=== PATIENT | female | born 1970 | race Hispanic/Latino ===

== ENCOUNTER 2016-07-15 07:54 | Observation (INO) | payer BC ==
[~2016-07-15] VITALS: Ht 167.6 cm; Wt 90.0 kg
[~2016-07-15 07:54] MED LIST: ALBUTEROL SUL0.083 % IN; ATIVAN0.5 MG PO; CEPHALEXIN500 MG PO; CIPROFLOXACN500 MG PO; HYDROCHLOROT12.5 MG PO; LORTAB5 PO; MEDDOSEPAK PO; METFORMIN500 MG PO; METHOCARBAM500 MG PO; METHOCARBAMOL500 MG PO; NAPROXEN250 MG PO; NAPROXEN500 MG PO; NO HOME MEDS; PRAVASTATIN20 MG PO; PROVENTIL HFA INH; RYBIX ODT50 MG PO; TRAMADOL HCL50 MG PO; ULTRAM50 M1 PO; ULTRAM50 MG OR; VENTOLIN HFA IN; ZITHROMAX250 MG PO; ZPAK PO; [UNRECOGNIZED DRUG - OTHER] OR
[2016-07-15] MEDS ORDERED: METOPROLOL SUCC25 MG PO (08:14)
[2016-07-15] MEDS ORDERED: NITROSTAT0.4 MG SL (08:15)
[2016-07-15] MEDS ORDERED: ASPIRIN ADULT L81 MG PO (08:15)
[2016-07-15] MEDS ORDERED: BUT/APAP/CAF PO (08:16)
[2016-07-15] MEDS ORDERED: PHENERGAN25 MG/TAB PO (08:17)
[2016-07-15] MEDS ORDERED: LIPITOR40 M1 PO (08:17)
[2016-07-15] MEDS ORDERED: PROTONIX40 M2 PO (08:18)
[2016-07-15] MEDS ORDERED: TESSALON PERLE100 MG (08:18)
[2016-07-15 08:23] LABS: HEMATOCRIT 40.8 % (37.0-47.0); HEMOGLOBIN 13.7 g/dl (12.0-16.0); IMMATURE GRANULOCYTES 0.3 % (0.0-1.0); MEAN CELL VOLUME 89.9 fL CALC (80.0-100.0); MEAN CORPUSCULAR HGB 30.2 pG CALC (26.0-32.0); MEAN CORPUSCULAR HGB CONC 33.6 g/L CALC (32.0-36.0); NEUT# 5.77 thou/uL (2.00-7.15); RED BLOOD COUNT 4.54 mill/uL (4.20-5.60); RED CELL DISTRI WIDTH 13.2 % (11.5-15.5)
[2016-07-15 09:03] LABS: ALBUMIN 4.4 g/dL (3.2-5.0); ALKALINE PHOSPHATASE 68 u/l (38-126); ANION GAP 16 (6-22 (CALC)); BILIRUBIN, TOTAL 0.3 mg/dL (0.0-1.4); BUN 11 mg/dL (7-17); BUN/CREATININE RATIO 14 (12-20 (CALC)); CALCIUM 9.4 mg/dL (8.4-10.2); CARBON DIOXIDE 21 mmol/l (22-30); CHLORIDE 106 mmol/l (95-108); CREATININE 0.8 mg/dL (0.5-1.0); GFR > 60 ML/MIN (>=60 (CALC)); GFR FOR AFR.AMER. > 60 ML/MIN (>=60 (CALC)); GLUCOSE 123 mg/dL (65-105); POTASSIUM 3.6 mmol/l (3.5-5.1); SGOT/AST 25 u/l (14-36); SGPT/ALT 24 u/l (9-52); SODIUM 140 mmol/l (137-146); TOTAL PROTEIN 8.5 g/dL (6.3-8.2)
[2016-07-15 09:15] LABS: MYOGLOBIN 28 ng/mL (0 - 62)
[2016-07-15 11:57] VITALS: BP 108/74
[2016-07-15 16:21] VITALS: BP 107/58
[2016-07-15 19:30] VITALS: BP 106/72
[2016-07-15] MEDS ORDERED: TOPAMAX50 MG PO (22:17)
[2016-07-15 23:52] VITALS: BP 107/60
[2016-07-16 04:51] VITALS: BP 95/45
[2016-07-16 08:48] VITALS: BP 101/61
[2016-07-16 08:51] VITALS: BP 101/61
== END 2016-07-16 13:20 | disposition home or self-care (01) | DRG 303 ==
LOC: ENPENDDIS → ED 07:54 → ED-I 09:55 → ED 10:02 → MS2 10:03
PROVIDERS: Emergency Medicine; ADMIT Internal Medicine; ATTEND Internal Medicine
DX: I25.118 Atherosclerotic heart disease of native coronary artery with other forms of angina pectoris (principal); I10 Essential (primary) hypertension; J45.909 Unspecified asthma, uncomplicated; F41.9 Anxiety disorder, unspecified; F32.9 Major depressive disorder, single episode, unspecified; F17.200 Nicotine dependence, unspecified, uncomplicated; G43.909 Migraine, unspecified, not intractable, without status migrainosus
CPT/HCPCS: G0378

== ENCOUNTER 2016-11-03 14:02 | Emergency (ER) | payer BC ==
[~2016-11-03] VITALS: Ht 167.6 cm; Wt 90.0 kg
[~2016-11-03 14:02] MED LIST changes: +ASPIRIN ADULT L81 MG PO; +BUT/APAP/CAF PO; +LIPITOR40 M1 PO; +METOPROLOL SUCC25 MG PO; +NITROSTAT0.4 MG SL; +PHENERGAN25 MG/TAB PO; +PROTONIX40 M2 PO; +TESSALON PERLE100 MG; +TOPAMAX50 MG PO
[2016-11-03] MEDS ORDERED: BACTRIM DS1 TAB PO (14:29)
[2016-11-03] MEDS ORDERED: LORTAB 5-325 MG1 TAB PO (15:18)
[2016-11-03 15:27] VITALS: BP 135/80
--- NOTE | 2016-11-07 11:14 | NUR ---
Sent a certified letter to pt's address to notify her that a new prescription had been called in to her pharmacy on 11/06/2016.
== END 2016-11-03 15:31 | disposition home or self-care (01) | DRG 603 ==
LOC: ED 14:02
PROC: 0H9BXZZ Drainage of Right Upper Arm Skin, External Approach (ICD-10-PCS; principal; 2016-11-03)
DX: L02.411 Cutaneous abscess of right axilla (principal); B95.7 Other staphylococcus as the cause of diseases classified elsewhere

== ENCOUNTER 2017-02-03 22:07 | Emergency (ER) | payer BC ==
[~2017-02-03] VITALS: Ht 167.6 cm; Wt 80.0 kg
[~2017-02-03 22:07] MED LIST changes: +BACTRIM DS1 TAB PO; +LORTAB 5-325 MG1 TAB PO
[2017-02-03] MEDS ORDERED: METO25TAB PO (22:20)
[2017-02-03] MEDS ORDERED: TOPIRAMATE100 MG PO (22:21)
[2017-02-03] MEDS ORDERED: CRESTOR40 MG PO (22:23)
[2017-02-03 22:40] LABS: HEMATOCRIT 35.2 % (37.0-47.0); HEMOGLOBIN 11.8 g/dl (12.0-16.0); IMMATURE GRANULOCYTES 0.2 % (0.0-1.0); MEAN CELL VOLUME 87.1 fL CALC (80.0-100.0); MEAN CORPUSCULAR HGB 29.2 pG CALC (26.0-32.0); MEAN CORPUSCULAR HGB CONC 33.5 g/L CALC (32.0-36.0); NEUT# 4.44 thou/uL (2.00-7.15); RED BLOOD COUNT 4.04 mill/uL (4.20-5.60); RED CELL DISTRI WIDTH 18.7 % (11.5-15.5)
[2017-02-03 22:50] LABS: ALKALINE PHOSPHATASE 41 u/l (38-126); ANION GAP 14 (6-22 (CALC)); BILIRUBIN, TOTAL 0.4 mg/dL (0.0-1.4); BUN 9 mg/dL (7-17); BUN/CREATININE RATIO 11 (12-20 (CALC)); CALCIUM 9.2 mg/dL (8.4-10.2); CARBON DIOXIDE 20 mmol/l (22-30); CHLORIDE 110 mmol/l (95-108); CREATININE 0.8 mg/dL (0.5-1.0); GFR > 60 ML/MIN (>=60 (CALC)); GFR FOR AFR.AMER. > 60 ML/MIN (>=60 (CALC)); GLUCOSE 84 mg/dL (65-105); POTASSIUM 3.9 mmol/l (3.5-5.1); SGOT/AST 19 u/l (14-36); SGPT/ALT 22 u/l (9-52); SODIUM 141 mmol/l (137-146); TOTAL PROTEIN 6.8 g/dL (6.3-8.2)
[2017-02-04 00:04] LABS: BARBITURATES NEGATIVE (NEGATIVE); COCAINE NEGATIVE (NEGATIVE); METHADONE NEGATIVE (NEGATIVE); OXCYCODONE NEGATIVE (NEGATIVE); TETRAHYDROCANNABIONOL NEGATIVE (NEGATIVE); TRICYLIC ANTIDEPRESSANTS NEGATIVE (NEGATIVE)
[2017-02-04 00:27] VITALS: BP 142/66
== END 2017-02-04 00:26 | disposition home or self-care (01) | DRG 103 ==
LOC: ED 22:07
PROVIDERS: Emergency Medicine
DX: R51 Headache (principal); R20.2 Paresthesia of skin; I10 Essential (primary) hypertension; J45.909 Unspecified asthma, uncomplicated; I25.10 Atherosclerotic heart disease of native coronary artery without angina pectoris; F41.9 Anxiety disorder, unspecified

== ENCOUNTER 2017-03-03 12:16 | Emergency (ER) | payer OTHER, BC ==
[~2017-03-03] VITALS: Ht 167.6 cm; Wt 82.0 kg
[~2017-03-03 12:16] MED LIST changes: +CRESTOR40 MG PO; +METO25TAB PO; +TOPIRAMATE100 MG PO
[2017-03-03] MEDS ORDERED: TRAMADOL HYDROC50 MG PO (14:25)
[2017-03-03] MEDS ORDERED: MOTRIN800 MG PO (14:25)
[2017-03-03] MEDS ORDERED: FLEXERIL PO (14:25)
[2017-03-03 14:29] VITALS: BP 100/95
== END 2017-03-03 14:44 | disposition home or self-care (01) | DRG 914 ==
LOC: ED 12:16
DX: S09.90XA Unspecified injury of head, initial encounter (principal); M54.41 Lumbago with sciatica, right side; W01.198A Fall on same level from slipping, tripping and stumbling with subsequent striking against other object, initial encounter; Y93.01 Activity, walking, marching and hiking; Y92.414 Local residential or business street as the place of occurrence of the external cause

== ENCOUNTER 2017-10-08 21:14 | Emergency (ER) | payer BC ==
[~2017-10-08] VITALS: Ht 167.6 cm; Wt 80.0 kg
[~2017-10-08 21:14] MED LIST changes: +FLEXERIL PO; +MOTRIN800 MG PO; +TRAMADOL HYDROC50 MG PO
[2017-10-08 22:39] LABS: HEMATOCRIT 35.4 % (37.0-47.0); HEMOGLOBIN 12.1 g/dl (12.0-16.0); IMMATURE GRANULOCYTES 0.5 % (0.0-1.0); MEAN CORPUSCULAR HGB 32.1 pG CALC (26.0-32.0); MEAN CORPUSCULAR HGB CONC 34.2 g/L CALC (32.0-36.0); NEUT# 3.8 thou/uL (2.00-7.15); RED BLOOD COUNT 3.77 mill/uL (4.20-5.60); RED CELL DISTRI WIDTH 13.2 % (11.5-15.5)
[2017-10-08 22:40] LABS: MEAN CELL VOLUME 93.9 fL CALC (80.0-100.0)
[2017-10-08 22:52] LABS: ALBUMIN 3.5 g/dL (3.2-5.0); ALKALINE PHOSPHATASE 50 u/l (38-126); ANION GAP 11 (6-22 (CALC)); BILIRUBIN, TOTAL 0.3 mg/dL (0.0-1.4); BUN 15 mg/dL (7-17); BUN/CREATININE RATIO 17 (12-20 (CALC)); CARBON DIOXIDE 22 mmol/l (22-30); CHLORIDE 107 mmol/l (95-108); CREATININE 0.9 mg/dL (0.5-1.0); GFR > 60 ML/MIN (>=60 (CALC)); GFR FOR AFR.AMER. > 60 ML/MIN (>=60 (CALC)); POTASSIUM 3.5 mmol/l (3.5-5.1); SGOT/AST 20 u/l (14-36); SGPT/ALT 32 u/l (9-52); SODIUM 136 mmol/l (137-146); TOTAL PROTEIN 6.5 g/dL (6.3-8.2)
[2017-10-08] MEDS ORDERED: PROVERA10 MG PO (23:08)
[2017-10-09 00:21] VITALS: BP 110/68
== END 2017-10-09 00:21 | disposition home or self-care (01) | DRG 761 ==
LOC: ED 21:14
PROVIDERS: Family Medicine
DX: N93.9 Abnormal uterine and vaginal bleeding, unspecified (principal); R53.1 Weakness; R10.2 Pelvic and perineal pain
CPT/HCPCS: J1410

== ENCOUNTER 2018-01-14 15:15 | Emergency (ER) | payer BC ==
[~2018-01-14] VITALS: Ht 167.6 cm; Wt 80.0 kg
[~2018-01-14 15:15] MED LIST changes: +PROVERA10 MG PO
[2018-01-14] MEDS ORDERED: VENTOLIN H108 MCG/AC (15:26)
[2018-01-14 16:34] LABS: INFLUENZA A NONE DETECTED (NONE DETECT); INFLUENZA B NONE DETECTED (NONE DETECT)
[2018-01-14] MEDS ORDERED: ZPAK PO (16:37)
[2018-01-14 16:40] VITALS: BP 133/71
== END 2018-01-14 16:46 | disposition home or self-care (01) | DRG 153 ==
LOC: ED 15:15
PROVIDERS: Family Medicine
DX: J06.9 Acute upper respiratory infection, unspecified (principal); I10 Essential (primary) hypertension; I25.10 Atherosclerotic heart disease of native coronary artery without angina pectoris; M32.9 Systemic lupus erythematosus, unspecified; J45.909 Unspecified asthma, uncomplicated; K21.9 Gastro-esophageal reflux disease without esophagitis; F17.210 Nicotine dependence, cigarettes, uncomplicated

== ENCOUNTER 2018-01-30 07:18 | Emergency (ER) | payer BC ==
[~2018-01-30] VITALS: Ht 167.6 cm; Wt 82.7 kg
[~2018-01-30 07:18] MED LIST changes: +VENTOLIN H108 MCG/AC
[2018-01-30 08:13] LABS: HEMATOCRIT 35.9 % (37.0-47.0); HEMOGLOBIN 11.3 g/dl (12.0-16.0); IMMATURE GRANULOCYTES 0.6 % (0.0-5.0); MEAN CELL VOLUME 87.6 fL CALC (80.0-100.0); MEAN CORPUSCULAR HGB 27.6 pG CALC (26.0-32.0); MEAN CORPUSCULAR HGB CONC 31.5 g/L CALC (32.0-36.0); NEUT# 4.11 thou/uL (2.00-7.15); RED BLOOD COUNT 4.1 mill/uL (4.20-5.60); RED CELL DISTRI WIDTH 17.2 % (11.5-15.5)
[2018-01-30 08:23] LABS: ANION GAP 14 (6-22 (CALC)); BUN 15 mg/dL (7-17); BUN/CREATININE RATIO 19 (12-20 (CALC)); CARBON DIOXIDE 20 mmol/l (22-30); CHLORIDE 112 mmol/l (95-108); CREATININE 0.8 mg/dL (0.5-1.0); GFR > 60 ML/MIN (>=60 (CALC)); GFR FOR AFR.AMER. > 60 ML/MIN (>=60 (CALC)); POTASSIUM 3.9 mmol/l (3.5-5.1); SODIUM 142 mmol/l (137-146)
[2018-01-30 11:26] VITALS: BP 117/56
== END 2018-01-30 11:28 | disposition short-term general hospital (02) | DRG 313 ==
LOC: ED 07:18
PROVIDERS: Family Medicine
DX: R07.9 Chest pain, unspecified (principal); G43.909 Migraine, unspecified, not intractable, without status migrainosus; I10 Essential (primary) hypertension

== ENCOUNTER 2018-05-27 13:09 | Emergency (ER) | payer BC ==
[~2018-05-27] VITALS: Ht 167.6 cm; Wt 80.0 kg
[2018-05-27] MEDS ORDERED: RANITIDINE150 M1 PO (13:33)
[2018-05-27 14:36] LABS: URINE BILIRUBIN - DIPSTICK NEGATIVE (NEGATIVE); URINE BLOOD DIPSTICK NEGATIVE (NEGATIVE); URINE COLOR YELLOW; URINE GLUCOSE - DIPSTICK NEGATIVE (NEGATIVE); URINE KETONE NEGATIVE (NEGATIVE); URINE LEUK ESTERASE NEGATIVE (NEGATIVE); URINE NITRITE - DIPSTICK NEGATIVE (Negative); URINE PROTEIN - DIPSTICK NEGATIVE (NEG-TRACE); URINE SPECIFIC GRAVITY 1.025; URINE UROBILINOGEN - DIPSTICK 0.2 E.U./dL (0.2)
[2018-05-27] MEDS ORDERED: VOLTAREN - GENE75 MG PO (15:36)
[2018-05-27] MEDS ORDERED: TRAMADOL HCL50 MG PO (15:36)
[2018-05-27 16:02] VITALS: BP 106/77
== END 2018-05-27 16:01 | disposition home or self-care (01) | DRG 563 ==
LOC: ED 13:09
PROVIDERS: Family Medicine
DX: S39.012A Strain of muscle, fascia and tendon of lower back, initial encounter (principal); I10 Essential (primary) hypertension; I25.10 Atherosclerotic heart disease of native coronary artery without angina pectoris; K21.9 Gastro-esophageal reflux disease without esophagitis; J45.909 Unspecified asthma, uncomplicated; F17.200 Nicotine dependence, unspecified, uncomplicated; X58.XXXA Exposure to other specified factors, initial encounter

== ENCOUNTER 2018-06-30 06:24 | Emergency (ER) | payer BC ==
[~2018-06-30] VITALS: Ht 167.6 cm; Wt 80.0 kg
[~2018-06-30 06:24] MED LIST changes: +RANITIDINE150 M1 PO; -VENTOLIN H108 MCG/AC; +VENTOLIN H108 MCG/AC IN; +VOLTAREN - GENE75 MG PO
[2018-06-30] MEDS ORDERED: NAPROSYN500 MG PO (07:19)
[2018-06-30 07:52] VITALS: BP 139/75
== END 2018-06-30 07:52 | disposition home or self-care (01) | DRG 563 ==
LOC: ED 06:24
DX: S93.401A Sprain of unspecified ligament of right ankle, initial encounter (principal); S93.601A Unspecified sprain of right foot, initial encounter; I10 Essential (primary) hypertension; I25.10 Atherosclerotic heart disease of native coronary artery without angina pectoris; F17.200 Nicotine dependence, unspecified, uncomplicated; X58.XXXA Exposure to other specified factors, initial encounter; Y92.481 Parking lot as the place of occurrence of the external cause; Y99.9 Unspecified external cause status

== ENCOUNTER 2018-10-29 13:37 | Emergency (ER) | payer BC ==
[~2018-10-29] VITALS: Ht 167.6 cm; Wt 85.0 kg
[~2018-10-29 13:37] MED LIST changes: +NAPROSYN500 MG PO
[2018-10-29] MEDS ORDERED: PROPRANOLOL80 M1 PO (13:48)
[2018-10-29] MEDS ORDERED: PROAIR HFA108 MCG/AC IN (13:49)
[2018-10-29 14:32] LABS: HEMATOCRIT 36.2 % (37.0-47.0); HEMOGLOBIN 11.4 g/dl (12.0-16.0); IMMATURE GRANULOCYTES 0.3 % (0.0-5.0); MEAN CELL VOLUME 87.2 fL CALC (80.0-100.0); MEAN CORPUSCULAR HGB 27.5 pG CALC (26.0-32.0); MEAN CORPUSCULAR HGB CONC 31.5 g/L CALC (32.0-36.0); NEUT# 4.39 thou/uL (2.00-7.15); RED BLOOD COUNT 4.15 mill/uL (4.20-5.60); RED CELL DISTRI WIDTH 13.5 % (11.5-15.5)
[2018-10-29 16:07] LABS: ALBUMIN 4.2 g/dL (3.2-5.0); ALKALINE PHOSPHATASE 46 u/l (38-126); ANION GAP 15 (6-22 (CALC)); BILIRUBIN, TOTAL 0.3 mg/dL (0.0-1.4); BUN 13 mg/dL (7-17); BUN/CREATININE RATIO 15 (12-20 (CALC)); CARBON DIOXIDE 19 mmol/l (22-30); CHLORIDE 110 mmol/l (95-108); CREATININE 0.9 mg/dL (0.5-1.0); GFR > 60 ML/MIN (>=60 (CALC)); GFR FOR AFR.AMER. > 60 ML/MIN (>=60 (CALC)); POTASSIUM 3.7 mmol/l (3.5-5.1); SODIUM 141 mmol/l (137-146); TOTAL PROTEIN 7.3 g/dL (6.3-8.2)
[2018-10-29 16:09] LABS: SGOT/AST 54 u/l (14-36)
[2018-10-29] MEDS ORDERED: TORADOL PO (16:18)
[2018-10-29 16:26] VITALS: BP 112/55
== END 2018-10-29 16:33 | disposition home or self-care (01) | DRG 103 ==
LOC: ED 13:37
PROVIDERS: Emergency Medicine
DX: R51 Headache (principal); I10 Essential (primary) hypertension; I25.10 Atherosclerotic heart disease of native coronary artery without angina pectoris; F17.200 Nicotine dependence, unspecified, uncomplicated

== ENCOUNTER 2018-12-05 21:15 | Emergency (ER) | payer BC ==
[~2018-12-05] VITALS: Ht 167.6 cm; Wt 90.0 kg
[~2018-12-05 21:15] MED LIST changes: +PROAIR HFA108 MCG/AC IN; +PROPRANOLOL80 M1 PO; +TORADOL PO
[2018-12-05] MEDS ORDERED: CRESTOR40 MG PO (21:34)
[2018-12-05 21:43] LABS: HEMATOCRIT 36.9 % (37.0-47.0); HEMOGLOBIN 11.4 g/dl (12.0-16.0); IMMATURE GRANULOCYTES 0.3 % (0.0-5.0); MEAN CELL VOLUME 83.9 fL CALC (80.0-100.0); MEAN CORPUSCULAR HGB 25.9 pG CALC (26.0-32.0); MEAN CORPUSCULAR HGB CONC 30.9 g/L CALC (32.0-36.0); NEUT# 4.86 thou/uL (2.00-7.15); RED BLOOD COUNT 4.4 mill/uL (4.20-5.60); RED CELL DISTRI WIDTH 14.6 % (11.5-15.5)
[2018-12-05 22:04] LABS: ALBUMIN 4.6 g/dL (3.2-5.0); ALKALINE PHOSPHATASE 63 u/l (38-126); AMYLASE 107 u/l (30-110); ANION GAP 13 (6-22 (CALC)); BILIRUBIN, TOTAL 0.2 mg/dL (0.0-1.4); BUN 15 mg/dL (7-17); BUN/CREATININE RATIO 18 (12-20 (CALC)); CHLORIDE 109 mmol/l (95-108); CREATININE 0.9 mg/dL (0.5-1.0); GFR > 60 ML/MIN (>=60 (CALC)); GFR FOR AFR.AMER. > 60 ML/MIN (>=60 (CALC)); LIPASE 317 u/l (23-300); POTASSIUM 3.8 mmol/l (3.5-5.1); SGOT/AST 28 u/l (14-36); SODIUM 141 mmol/l (137-146)
[2018-12-05 22:06] LABS: ACT PARTIAL THROMBO TIME 25.7 SECONDS (20.0-32.5); CARBON DIOXIDE 23 mmol/l (22-30); D-DIMER 0.22 mg/L (0.19-0.60); INTERNATIONAL NORMALIZED RATIO 0.9 RATIO (0.7-1.3); PROTHROMBIN TIME 9.3 SECONDS (9.0-12.5)
[2018-12-05 22:16] LABS: MYOGLOBIN 157 ng/mL (0 - 62)
[2018-12-06] MEDS ORDERED: TORADOL PO (01:12)
[2018-12-06 01:25] VITALS: BP 94/55
== END 2018-12-06 01:25 | disposition home or self-care (01) | DRG 206 ==
LOC: ED 21:15
PROVIDERS: Family Medicine
DX: M94.0 Chondrocostal junction syndrome [Tietze] (principal); I25.10 Atherosclerotic heart disease of native coronary artery without angina pectoris; I10 Essential (primary) hypertension; F17.200 Nicotine dependence, unspecified, uncomplicated

== ENCOUNTER 2019-01-25 10:12 | Observation (INO) | payer BC ==
[~2019-01-25] VITALS: Ht 167.6 cm; Wt 89.4 kg
[2019-01-25 10:55] LABS: HEMATOCRIT 38.4 % (37.0-47.0); HEMOGLOBIN 11.7 g/dl (12.0-16.0); IMMATURE GRANULOCYTES 0.4 % (0.0-5.0); MEAN CELL VOLUME 82.4 fL CALC (80.0-100.0); MEAN CORPUSCULAR HGB 25.1 pG CALC (26.0-32.0); MEAN CORPUSCULAR HGB CONC 30.5 g/L CALC (32.0-36.0); NEUT# 5.25 thou/uL (2.00-7.15); RED BLOOD COUNT 4.66 mill/uL (4.20-5.60); RED CELL DISTRI WIDTH 18.6 % (11.5-15.5)
[2019-01-25 11:30] LABS: ACT PARTIAL THROMBO TIME 27.3 SECONDS (20.0-32.5); INTERNATIONAL NORMALIZED RATIO 0.9 RATIO (0.7-1.3); PROTHROMBIN TIME 9.4 SECONDS (9.0-12.5)
[2019-01-25 11:36] LABS: ALBUMIN 4.8 g/dL (3.2-5.0); ALKALINE PHOSPHATASE 68 u/l (38-126); AMYLASE 78 u/l (30-110); ANION GAP 14 (6-22 (CALC)); BUN 15 mg/dL (7-17); BUN/CREATININE RATIO 18 (12-20 (CALC)); CARBON DIOXIDE 23 mmol/l (22-30); CHLORIDE 107 mmol/l (95-108); CREATININE 0.8 mg/dL (0.5-1.0); GFR > 60 ML/MIN (>=60 (CALC)); GFR FOR AFR.AMER. > 60 ML/MIN (>=60 (CALC)); LIPASE 144 u/l (23-300); POTASSIUM 3.9 mmol/l (3.5-5.1); SGOT/AST 37 u/l (14-36); SODIUM 140 mmol/l (137-146); TOTAL PROTEIN 8.4 g/dL (6.3-8.2)
[2019-01-25 11:37] LABS: BILIRUBIN, TOTAL 0.3 mg/dL (0.0-1.4)
[2019-01-25 13:14] LABS: URINE BILIRUBIN - DIPSTICK NEGATIVE (NEGATIVE); URINE BLOOD DIPSTICK NEGATIVE (NEGATIVE); URINE COLOR YELLOW; URINE GLUCOSE - DIPSTICK NEGATIVE (NEGATIVE); URINE KETONE NEGATIVE (NEGATIVE); URINE LEUK ESTERASE NEGATIVE (NEGATIVE); URINE NITRITE - DIPSTICK NEGATIVE (Negative); URINE PROTEIN - DIPSTICK NEGATIVE (NEG-TRACE); URINE UROBILINOGEN - DIPSTICK 0.2 E.U./dL (0.2)
[2019-01-25 14:30] VITALS: BP 106/61
[2019-01-25 15:15] VITALS: BP 95/57
[2019-01-25 19:05] VITALS: BP 116/69
[2019-01-25 23:40] VITALS: BP 85/58
[2019-01-26 05:30] VITALS: BP 98/61
[2019-01-26 06:23] LABS: CHOLESTEROL HDL RATIO 3.4 (<4.4 (CALC))
[2019-01-26 07:55] VITALS: BP 120/63
[2019-01-26 08:28] VITALS: BP 120/63
== END 2019-01-26 10:01 | disposition home or self-care (01) | DRG 303 ==
LOC: ED 10:12 → ED-I 11:30 → ED 12:10 → MS2 12:11
PROVIDERS: ADMIT Internal Medicine; ATTEND Internal Medicine
DX: I25.119 Atherosclerotic heart disease of native coronary artery with unspecified angina pectoris (principal); I10 Essential (primary) hypertension; D64.9 Anemia, unspecified; J45.909 Unspecified asthma, uncomplicated; K21.9 Gastro-esophageal reflux disease without esophagitis; F32.9 Major depressive disorder, single episode, unspecified; F41.9 Anxiety disorder, unspecified; G43.909 Migraine, unspecified, not intractable, without status migrainosus; F17.210 Nicotine dependence, cigarettes, uncomplicated
CPT/HCPCS: G0378

== ENCOUNTER 2019-10-05 14:17 | Emergency (ER) | payer BC ==
[~2019-10-05] VITALS: Ht 167.6 cm; Wt 85.0 kg
[2019-10-05] MEDS ORDERED: LORATADINE10 M1 PO (16:02)
[2019-10-05] MEDS ORDERED: BUT/APAP/CA3 PO (16:03)
[2019-10-05] MEDS ORDERED: FIORICET PO (16:06)
[2019-10-05 17:58] VITALS: BP 130/76
== END 2019-10-05 17:58 | disposition home or self-care (01) | DRG 866 ==
LOC: ED 14:17
DX: B34.9 Viral infection, unspecified (principal); G43.909 Migraine, unspecified, not intractable, without status migrainosus; I10 Essential (primary) hypertension; I25.10 Atherosclerotic heart disease of native coronary artery without angina pectoris; F17.200 Nicotine dependence, unspecified, uncomplicated; Z20.828 Contact with and (suspected) exposure to other viral communicable diseases

== ENCOUNTER 2020-02-11 08:03 | Emergency (ER) | payer BC ==
[~2020-02-11] VITALS: Ht 167.6 cm; Wt 65.0 kg
[~2020-02-11 08:03] MED LIST changes: +BUT/APAP/CA3 PO; +FIORICET PO; +LORATADINE10 M1 PO
[2020-02-11] MEDS ORDERED: NAPROXEN DR500 MG PO (08:46)
[2020-02-11 08:54] VITALS: BP 142/76
== END 2020-02-11 09:04 | disposition home or self-care (01) | DRG 563 ==
LOC: ED 08:03
DX: S93.401A Sprain of unspecified ligament of right ankle, initial encounter (principal); M77.31 Calcaneal spur, right foot; I10 Essential (primary) hypertension; I25.10 Atherosclerotic heart disease of native coronary artery without angina pectoris; J45.909 Unspecified asthma, uncomplicated; K21.9 Gastro-esophageal reflux disease without esophagitis; F17.200 Nicotine dependence, unspecified, uncomplicated; X58.XXXA Exposure to other specified factors, initial encounter

== ENCOUNTER 2020-06-20 19:30 | Emergency (ER) | payer BC ==
[~2020-06-20] VITALS: Ht 167.6 cm; Wt 110.0 kg
[~2020-06-20 19:30] MED LIST changes: +NAPROXEN DR500 MG PO
[2020-06-20 21:41] LABS: HEMATOCRIT 44.8 % (37.0-47.0); HEMOGLOBIN 14.6 g/dl (12.0-16.0); IMMATURE GRANULOCYTES 0.5 % (0.0-5.0); MEAN CELL VOLUME 97.2 fL CALC (80.0-100.0); MEAN CORPUSCULAR HGB 31.7 pG CALC (26.0-32.0); MEAN CORPUSCULAR HGB CONC 32.6 g/dL CAL (32.0-36.0); NEUT# 5.3 thou/uL (2.00-7.15); RED BLOOD COUNT 4.61 mill/uL (4.20-5.60); RED CELL DISTRI WIDTH 13.6 % (11.5-15.5)
[2020-06-20 21:42] LABS: URINE BILIRUBIN - DIPSTICK NEGATIVE (NEGATIVE); URINE BLOOD DIPSTICK NEGATIVE (NEGATIVE); URINE COLOR YELLOW; URINE GLUCOSE - DIPSTICK NEGATIVE (NEGATIVE); URINE KETONE NEGATIVE (NEGATIVE); URINE LEUK ESTERASE NEGATIVE (NEGATIVE); URINE NITRITE - DIPSTICK NEGATIVE (Negative); URINE PROTEIN - DIPSTICK NEGATIVE (NEG-TRACE); URINE SPECIFIC GRAVITY 1.025
[2020-06-20 22:08] LABS: ALBUMIN 4.6 g/dL (3.2-5.0); ALKALINE PHOSPHATASE 65 u/l (38-126); ANION GAP 13 (6-22 (CALC)); BUN 14 mg/dL (7-17); BUN/CREATININE RATIO 16 (12-20 (CALC)); CARBON DIOXIDE 25 mmol/l (22-30); CHLORIDE 102 mmol/l (95-108); CREATININE 0.9 mg/dL (0.5-1.0); GFR > 60 ML/MIN (>=60 (CALC)); GFR FOR AFR.AMER. > 60 ML/MIN (>=60 (CALC)); POTASSIUM 3.7 mmol/l (3.5-5.1); SGOT/AST 42 u/l (14-36); SODIUM 135 mmol/l (137-146); TOTAL PROTEIN 8.2 g/dL (6.3-8.2)
[2020-06-20 22:15] LABS: BILIRUBIN, TOTAL 0.6 mg/dL (0.0-1.4)
[2020-06-20 22:53] VITALS: BP 132/90
== END 2020-06-20 23:00 | disposition home or self-care (01) | DRG 948 ==
LOC: ED 19:30
DX: R60.9 Edema, unspecified (principal); I10 Essential (primary) hypertension; I25.10 Atherosclerotic heart disease of native coronary artery without angina pectoris; J45.909 Unspecified asthma, uncomplicated; K21.9 Gastro-esophageal reflux disease without esophagitis; F17.200 Nicotine dependence, unspecified, uncomplicated

== ENCOUNTER 2020-08-12 | Emergency (ER) | payer BC ==
[2020-08-12 07:16] LABS: URINE BILIRUBIN - DIPSTICK NEGATIVE (NEGATIVE); URINE BLOOD DIPSTICK LARGE (NEGATIVE); URINE COLOR YELLOW; URINE GLUCOSE - DIPSTICK NEGATIVE (NEGATIVE); URINE KETONE NEGATIVE (NEGATIVE); URINE LEUK ESTERASE TRACE (NEGATIVE); URINE PH 5.5 (4.5-8.0); URINE PROTEIN - DIPSTICK 100 mg/dL (NEG-TRACE); URINE SPECIFIC GRAVITY >=1.030
[2020-08-12 07:20] LABS: URINE NITRITE - DIPSTICK POSITIVE (Negative)
[2020-08-12 07:21] LABS: URINE BACTERIA FEW hpf; URINE RBC 25-50 RBC/hpf (0-5); URINE SQUAMOUS EPITHELIAL CELL FEW EPI/hpf (0-FEW); URINE WBC 20-50 WBC/hpf (0-5)
[2020-08-12] MEDS ORDERED: NITROFURANTOIN100 M1 PO (07:56)
== END 2020-08-12 08:05 | disposition home or self-care (01) | DRG 690 ==
PROVIDERS: Family Medicine
DX: N39.0 Urinary tract infection, site not specified (principal); B96.20 Unspecified Escherichia coli [E. coli] as the cause of diseases classified elsewhere; E11.9 Type 2 diabetes mellitus without complications; I10 Essential (primary) hypertension; I25.10 Atherosclerotic heart disease of native coronary artery without angina pectoris; J45.909 Unspecified asthma, uncomplicated; K21.9 Gastro-esophageal reflux disease without esophagitis; F17.210 Nicotine dependence, cigarettes, uncomplicated

== ENCOUNTER 2020-09-03 18:50 | Emergency (ER) | payer BC ==
[~2020-09-03] VITALS: Ht 167.6 cm; Wt 88.0 kg
[~2020-09-03 18:50] MED LIST changes: +NITROFURANTOIN100 M1 PO
[2020-09-03 19:13] LABS: HEMATOCRIT 41.1 % (37.0-47.0); HEMOGLOBIN 13.4 g/dl (12.0-16.0); IMMATURE GRANULOCYTES 0.5 % (0.0-5.0); MEAN CELL VOLUME 97.2 fL CALC (80.0-100.0); MEAN CORPUSCULAR HGB 31.7 pG CALC (26.0-32.0); MEAN CORPUSCULAR HGB CONC 32.6 g/dL CAL (32.0-36.0); NEUT# 5.45 thou/uL (2.00-7.15); RED BLOOD COUNT 4.23 mill/uL (4.20-5.60); RED CELL DISTRI WIDTH 13.5 % (11.5-15.5)
[2020-09-03 19:30] LABS: ALKALINE PHOSPHATASE 69 u/l (38-126); ANION GAP 11 (6-22 (CALC)); BILIRUBIN, TOTAL 0.5 mg/dL (0.0-1.4); BUN 9 mg/dL (7-17); BUN/CREATININE RATIO 14 (12-20 (CALC)); CARBON DIOXIDE 25 mmol/l (22-30); CHLORIDE 103 mmol/l (95-108); CREATININE 0.6 mg/dL (0.5-1.0); GFR > 60 ML/MIN (>=60 (CALC)); GFR FOR AFR.AMER. > 60 ML/MIN (>=60 (CALC)); LIPASE 126 u/l (23-300); POTASSIUM 3.5 mmol/l (3.5-5.1); SODIUM 136 mmol/l (137-146); TOTAL PROTEIN 7.6 g/dL (6.3-8.2)
[2020-09-03 19:31] LABS: SGOT/AST 82 u/l (14-36)
[2020-09-03 21:17] VITALS: BP 130/61
== END 2020-09-03 21:18 | disposition short-term general hospital (02) | DRG 313 ==
LOC: ED 18:50
PROVIDERS: Family Medicine
DX: R07.9 Chest pain, unspecified (principal); I10 Essential (primary) hypertension; E11.9 Type 2 diabetes mellitus without complications; I25.10 Atherosclerotic heart disease of native coronary artery without angina pectoris; J45.909 Unspecified asthma, uncomplicated; K21.9 Gastro-esophageal reflux disease without esophagitis; F17.200 Nicotine dependence, unspecified, uncomplicated
CPT/HCPCS: J1644

== ENCOUNTER 2020-10-16 07:30 | Emergency (ER) | payer BC ==
[~2020-10-16] VITALS: Ht 167.6 cm; Wt 81.8 kg
[2020-10-16 08:18] LABS: HEMATOCRIT 45.7 % (37.0-47.0); HEMOGLOBIN 15.1 g/dl (12.0-16.0); IMMATURE GRANULOCYTES 0.2 % (0.0-5.0); MEAN CELL VOLUME 95.4 fL CALC (80.0-100.0); MEAN CORPUSCULAR HGB 31.5 pG CALC (26.0-32.0); NEUT# 6.27 thou/uL (2.00-7.15); RED BLOOD COUNT 4.79 mill/uL (4.20-5.60); RED CELL DISTRI WIDTH 12.9 % (11.5-15.5)
[2020-10-16 08:23] LABS: URINE BILIRUBIN - DIPSTICK NEGATIVE (NEGATIVE); URINE BLOOD DIPSTICK NEGATIVE (NEGATIVE); URINE COLOR YELLOW; URINE GLUCOSE - DIPSTICK NEGATIVE (NEGATIVE); URINE KETONE NEGATIVE (NEGATIVE); URINE LEUK ESTERASE NEGATIVE (NEGATIVE); URINE PROTEIN - DIPSTICK NEGATIVE (NEG-TRACE); URINE SPECIFIC GRAVITY >=1.030
[2020-10-16 08:24] LABS: URINE NITRITE - DIPSTICK NEGATIVE (Negative)
[2020-10-16 08:35] LABS: ALBUMIN 4.5 g/dL (3.2-5.0); ALKALINE PHOSPHATASE 66 u/l (38-126); AMYLASE 60 u/l (30-110); ANION GAP 16 (6-22 (CALC)); BILIRUBIN, TOTAL 0.3 mg/dL (0.0-1.4); BUN 13 mg/dL (7-17); BUN/CREATININE RATIO 17 (12-20 (CALC)); CARBON DIOXIDE 22 mmol/l (22-30); CHLORIDE 105 mmol/l (95-108); CREATININE 0.7 mg/dL (0.5-1.0); GFR > 60 ML/MIN (>=60 (CALC)); GFR FOR AFR.AMER. > 60 ML/MIN (>=60 (CALC)); LIPASE 128 u/l (23-300); SGOT/AST 114 u/l (14-36); SODIUM 139 mmol/l (137-146); TOTAL PROTEIN 8.2 g/dL (6.3-8.2)
[2020-10-16 08:36] LABS: POTASSIUM 4.3 mmol/l (3.5-5.1)
[2020-10-16 08:47] LABS: MYOGLOBIN 34 ng/mL (0 - 62)
[2020-10-16] MEDS ORDERED: ASPIRIN81 MG PO (09:05)
[2020-10-16] MEDS ORDERED: SUCRALFATE1 GM PO (09:06)
[2020-10-16] MEDS ORDERED: XARELTO10 MG PO (09:06)
[2020-10-16] MEDS ORDERED: METFORMIN500 M2 PO (09:07)
[2020-10-16] MEDS ORDERED: FIORICET PO (09:07)
[2020-10-16] MEDS ORDERED: PROTONIX40 M2 PO (09:08)
[2020-10-16] MEDS ORDERED: NITRO-BID2.5 M1 PO (09:08)
[2020-10-16] MEDS ORDERED: PROPRANOLOL HCL40 MG PO (09:09)
[2020-10-16] MEDS ORDERED: CRESTOR40 MG PO (09:09)
[2020-10-16] MEDS ORDERED: ISOSORB MONO30 MG PO (09:09)
[2020-10-16] MEDS ORDERED: ULTRAM50 M1 PO (09:50)
[2020-10-16] MEDS ORDERED: KEFLEX500 MG PO (09:50)
[2020-10-16 09:57] VITALS: BP 123/68
== END 2020-10-16 10:05 | disposition home or self-care (01) | DRG 863 ==
LOC: ED 07:30
PROVIDERS: Emergency Medicine
DX: T81.41XA Infection following a procedure, superficial incisional surgical site, initial encounter (principal); I10 Essential (primary) hypertension; E11.9 Type 2 diabetes mellitus without complications; I25.10 Atherosclerotic heart disease of native coronary artery without angina pectoris; J45.909 Unspecified asthma, uncomplicated; K21.9 Gastro-esophageal reflux disease without esophagitis; F17.210 Nicotine dependence, cigarettes, uncomplicated; I25.2 Old myocardial infarction; Y83.6 Removal of other organ (partial) (total) as the cause of abnormal reaction of the patient, or of later complication, without mention of misadventure at the time of the procedure; Z79.84 Long term (current) use of oral hypoglycemic drugs; Z90.49 Acquired absence of other specified parts of digestive tract
CPT/HCPCS: Q9967

== ENCOUNTER 2021-03-12 18:20 | Emergency (ER) | payer BC ==
[~2021-03-12] VITALS: Ht 167.6 cm; Wt 99.0 kg
[~2021-03-12 18:20] MED LIST changes: +ASPIRIN81 MG PO; +ISOSORB MONO30 MG PO; +KEFLEX500 MG PO; +METFORMIN500 M2 PO; +NITRO-BID2.5 M1 PO; +PROPRANOLOL HCL40 MG PO; +SUCRALFATE1 GM PO; +XARELTO10 MG PO
[2021-03-12 20:25] LABS: HEMATOCRIT 43.8 % (37.0-47.0); HEMOGLOBIN 14.7 g/dl (12.0-16.0); IMMATURE GRANULOCYTES 0.3 % (0.0-5.0); MEAN CELL VOLUME 93.8 fL CALC (80.0-100.0); MEAN CORPUSCULAR HGB 31.5 pG CALC (26.0-32.0); MEAN CORPUSCULAR HGB CONC 33.6 g/dL CAL (32.0-36.0); NEUT# 9.56 thou/uL (2.00-7.15); RED BLOOD COUNT 4.67 mill/uL (4.20-5.60); RED CELL DISTRI WIDTH 14.2 % (11.5-15.5)
[2021-03-12] MEDS ORDERED: AMOX/K CLAV875 M1 PO (20:47)
[2021-03-12 20:58] VITALS: BP 139/66
== END 2021-03-12 20:58 | disposition home or self-care (01) | DRG 153 ==
LOC: ED 18:20
PROVIDERS: Family Medicine
DX: J32.9 Chronic sinusitis, unspecified (principal); E11.9 Type 2 diabetes mellitus without complications; I10 Essential (primary) hypertension; I25.10 Atherosclerotic heart disease of native coronary artery without angina pectoris; J45.909 Unspecified asthma, uncomplicated; K21.9 Gastro-esophageal reflux disease without esophagitis; F17.200 Nicotine dependence, unspecified, uncomplicated; Z79.84 Long term (current) use of oral hypoglycemic drugs; Z20.822 Contact with and (suspected) exposure to COVID-19

== ENCOUNTER 2021-08-08 14:08 | Emergency (ER) | payer BC ==
[~2021-08-08] VITALS: Ht 167.6 cm; Wt 86.0 kg
[2021-08-08] VITALS (7 sets, daily range): BP systolic 90–143; BP diastolic 48–81
[~2021-08-08 14:08] MED LIST changes: +AMOX/K CLAV875 M1 PO
[2021-08-08 14:45] LABS: HEMATOCRIT 44.5 % (37.0-47.0); HEMOGLOBIN 14.9 g/dl (12.0-16.0); IMMATURE GRANULOCYTES 0.1 % (0.0-5.0); MEAN CELL VOLUME 94.7 fL CALC (80.0-100.0); MEAN CORPUSCULAR HGB 31.7 pG CALC (26.0-32.0); MEAN CORPUSCULAR HGB CONC 33.5 g/dL CAL (32.0-36.0); NEUT# 5.06 thou/uL (2.00-7.15); RED BLOOD COUNT 4.7 mill/uL (4.20-5.60); RED CELL DISTRI WIDTH 13.2 % (11.5-15.5)
[2021-08-08 14:59] LABS: PROTHROMBIN TIME 10.1 SECONDS (9.0-12.5)
[2021-08-08 15:02] LABS: ALBUMIN 4.5 g/dL (3.2-5.0); ALKALINE PHOSPHATASE 81 u/l (38-126); ANION GAP 14 (6-22 (CALC)); BUN 12 mg/dL (7-17); BUN/CREATININE RATIO 17 (12-20 (CALC)); CARBON DIOXIDE 20 mmol/l (22-30); CHLORIDE 107 mmol/l (95-108); CREATININE 0.7 mg/dL (0.5-1.0); GFR > 60 ML/MIN (>=60 (CALC)); GFR FOR AFR.AMER. > 60 ML/MIN (>=60 (CALC)); LIPASE 134 u/l (23-300); POTASSIUM 3.6 mmol/l (3.5-5.1); SGOT/AST 100 u/l (14-36); SODIUM 138 mmol/l (137-146); TOTAL PROTEIN 8.3 g/dL (6.3-8.2)
[2021-08-08 15:08] LABS: BILIRUBIN, TOTAL 0.5 mg/dL (0.0-1.4)
[2021-08-08 15:14] LABS: MYOGLOBIN 43 ng/mL (0 - 62)
[2021-08-08] MEDS ORDERED: MEDDOSEPAK PO (18:13)
== END 2021-08-08 18:31 | disposition home or self-care (01) | DRG 313 ==
LOC: ED 14:08
PROVIDERS: Nurse Practitioner
DX: R07.9 Chest pain, unspecified (principal); I10 Essential (primary) hypertension; I25.10 Atherosclerotic heart disease of native coronary artery without angina pectoris; E11.9 Type 2 diabetes mellitus without complications; E78.5 Hyperlipidemia, unspecified; K21.9 Gastro-esophageal reflux disease without esophagitis; J45.909 Unspecified asthma, uncomplicated; F17.200 Nicotine dependence, unspecified, uncomplicated; Z79.84 Long term (current) use of oral hypoglycemic drugs

== ENCOUNTER 2021-10-29 13:05 | Emergency (ER) | payer OTHER ==
[~2021-10-29] VITALS: Ht 167.6 cm; Wt 89.0 kg
[2021-10-29] VITALS (7 sets, daily range): BP systolic 110–124; BP diastolic 64–73
[2021-10-29 16:00] LABS: URINE BILIRUBIN - DIPSTICK NEGATIVE (NEGATIVE); URINE BLOOD DIPSTICK MODERATE (NEGATIVE); URINE COLOR YELLOW; URINE GLUCOSE - DIPSTICK NEGATIVE (NEGATIVE); URINE KETONE NEGATIVE (NEGATIVE); URINE LEUK ESTERASE NEGATIVE (NEGATIVE); URINE PROTEIN - DIPSTICK 30 mg/dL (NEG-TRACE); URINE SPECIFIC GRAVITY >=1.030
[2021-10-29 16:01] LABS: HEMATOCRIT 42.5 % (37.0-47.0); HEMOGLOBIN 14.1 g/dl (12.0-16.0); IMMATURE GRANULOCYTES 0.1 % (0.0-5.0); MEAN CELL VOLUME 95.1 fL CALC (80.0-100.0); MEAN CORPUSCULAR HGB 31.5 pG CALC (26.0-32.0); MEAN CORPUSCULAR HGB CONC 33.2 g/dL CAL (32.0-36.0); NEUT# 4.85 thou/uL (2.00-7.15); RED BLOOD COUNT 4.47 mill/uL (4.20-5.60); RED CELL DISTRI WIDTH 13.5 % (11.5-15.5)
[2021-10-29 16:12] LABS: URINE NITRITE - DIPSTICK NEGATIVE (Negative)
[2021-10-29 16:14] LABS: URINE SQUAMOUS EPITHELIAL CELL FEW EPI/hpf (0-FEW)
[2021-10-29 16:21] LABS: ACT PARTIAL THROMBO TIME 29.7 SECONDS (20.0-32.5); PROTHROMBIN TIME 10.1 SECONDS (9.0-12.5)
[2021-10-29 16:30] LABS: ALBUMIN 4.3 g/dL (3.2-5.0); ALKALINE PHOSPHATASE 79 u/l (38-126); AMYLASE 83 u/l (30-110); ANION GAP 13 (6-22 (CALC)); BILIRUBIN, TOTAL 0.4 mg/dL (0.0-1.4); BUN 11 mg/dL (7-17); BUN/CREATININE RATIO 14 (12-20 (CALC)); CARBON DIOXIDE 23 mmol/l (22-30); CHLORIDE 107 mmol/l (95-108); CREATININE 0.8 mg/dL (0.5-1.0); GFR FOR AFR.AMER. > 60 ML/MIN (>=60 (CALC)); GFR OTHER RACES > 60 ML/MIN (>=60 (CALC)); LIPASE 188 u/l (23-300); POTASSIUM 3.9 mmol/l (3.5-5.1); SGOT/AST 57 u/l (14-36); SODIUM 139 mmol/l (137-146); TOTAL PROTEIN 7.3 g/dL (6.3-8.2)
[2021-10-29] MEDS ORDERED: HYDROCO/APAP1 TA9 PO (17:44)
== END 2021-10-29 18:22 | disposition home or self-care (01) | DRG 392 ==
LOC: ED 13:05
DX: R10.13 Epigastric pain (principal); R11.0 Nausea; K76.0 Fatty (change of) liver, not elsewhere classified; E11.9 Type 2 diabetes mellitus without complications; I10 Essential (primary) hypertension; I25.10 Atherosclerotic heart disease of native coronary artery without angina pectoris; J45.909 Unspecified asthma, uncomplicated; K21.9 Gastro-esophageal reflux disease without esophagitis; F17.210 Nicotine dependence, cigarettes, uncomplicated; F17.290 Nicotine dependence, other tobacco product, uncomplicated; Z79.84 Long term (current) use of oral hypoglycemic drugs; Z95.5 Presence of coronary angioplasty implant and graft
CPT/HCPCS: Q9967; S0164

== ENCOUNTER 2022-11-15 15:25 | Emergency (ER) | payer OTHER ==
[~2022-11-15] VITALS: Ht 167.6 cm; Wt 96.3 kg
[2022-11-15] VITALS (12 sets, daily range): BP systolic 124–146; BP diastolic 62–75
[~2022-11-15 15:25] MED LIST changes: +HYDROCO/APAP1 TA9 PO
[2022-11-15 16:12] LABS: BASO% 0.5 % (0-3); EOS% 5.4 % (0-8); HEMATOCRIT 42.3 % (37.0-47.0); HEMOGLOBIN 13.9 g/dl (12.0-16.0); IMMATURE GRANULOCYTES 0.2 % (0.0-5.0); LYMPH% 45.2 % (15-41); MEAN CELL VOLUME 94.4 fL CALC (80.0-100.0); MEAN CORPUSCULAR HGB CONC 32.9 g/dL CAL (32.0-36.0); MONO% 5.4 % (2-13); NEUT# 3.57 thou/uL (2.00-7.15); NEUT% 43.3 % (42-76); RED BLOOD COUNT 4.48 mill/uL (4.20-5.60); RED CELL DISTRI WIDTH 13.7 % (11.5-15.5)
[2022-11-15 16:32] LABS: ALBUMIN 4.2 g/dL (3.2-5.0); ALKALINE PHOSPHATASE 76 u/l (38-126); ANION GAP 13 (6-22 (CALC)); BILIRUBIN, TOTAL 0.4 mg/dL (0.02-1.3); BUN 14 mg/dL (7-17); BUN/CREATININE RATIO 20 (12-20 (CALC)); CARBON DIOXIDE 22 mmol/l (22-30); CHLORIDE 106 mmol/l (95-108); CREATININE 0.7 mg/dL (0.5-1.0); GFR FOR AFR.AMER. > 60 ML/MIN (>=60 (CALC)); GFR OTHER RACES > 60 ML/MIN (>=60 (CALC)); POTASSIUM 3.6 mmol/l (3.5-5.1); SGOT/AST 60 u/l (14-36); SODIUM 137 mmol/l (137-146); TOTAL PROTEIN 7.7 g/dL (6.3-8.2)
[2022-11-15 17:41] LABS: URINE BILIRUBIN - DIPSTICK NEGATIVE (NEGATIVE); URINE COLOR YELLOW; URINE GLUCOSE - DIPSTICK NEGATIVE (NEGATIVE); URINE KETONE NEGATIVE (NEGATIVE); URINE PH 6.5 (4.5-8.0)
[2022-11-15 17:42] LABS: URINE BLOOD DIPSTICK NEGATIVE (NEGATIVE); URINE LEUK ESTERASE NEGATIVE (NEGATIVE); URINE NITRITE - DIPSTICK NEGATIVE (Negative); URINE PROTEIN - DIPSTICK NEGATIVE (NEG-TRACE); URINE UROBILINOGEN - DIPSTICK >=8.0 E.U./dL (0.2)
[2022-11-15] MEDS ORDERED: NEURONTIN100 MG PO ×2 (18:15→18:21)
== END 2022-11-15 18:51 | disposition home or self-care (01) | DRG 74 ==
LOC: ED 15:25
PROVIDERS: Nurse Practitioner
DX: M54.10 Radiculopathy, site unspecified (principal); E11.51 Type 2 diabetes mellitus with diabetic peripheral angiopathy without gangrene; I10 Essential (primary) hypertension; I25.10 Atherosclerotic heart disease of native coronary artery without angina pectoris; J45.909 Unspecified asthma, uncomplicated; K21.9 Gastro-esophageal reflux disease without esophagitis; Z95.5 Presence of coronary angioplasty implant and graft; Z79.84 Long term (current) use of oral hypoglycemic drugs; F17.200 Nicotine dependence, unspecified, uncomplicated
CPT/HCPCS: Q9967

== ENCOUNTER 2023-04-23 18:21 | Observation (INO) | payer OTHER ==
[~2023-04-23] VITALS: Ht 167.6 cm; Wt 89.6 kg
[2023-04-23] VITALS (16 sets, daily range): BP systolic 115–137; BP diastolic 55–108
[~2023-04-23 18:21] MED LIST changes: +B125000 MCG PO; +EZETIMIBE10 MG PO; +NEURONTIN100 MG PO; +PEPCID40 MG PO; +PLAVIX75 MG PO; +TOPIRAMATE25 MG PO
[2023-04-23 19:11] LABS: BASO% 0.3 % (0-3); EOS% 1.4 % (0-8); HEMATOCRIT 43.7 % (37.0-47.0); HEMOGLOBIN 14.7 g/dl (12.0-16.0); IMMATURE GRANULOCYTES 0.2 % (0.0-5.0); LYMPH% 24.4 % (15-41); MEAN CORPUSCULAR HGB 31.6 pG CALC (26.0-32.0); MEAN CORPUSCULAR HGB CONC 33.6 g/dL CAL (32.0-36.0); MONO% 6.9 % (2-13); NEUT# 5.73 thou/uL (2.00-7.15); NEUT% 66.8 % (42-76); RED BLOOD COUNT 4.65 mill/uL (4.20-5.60)
[2023-04-23 19:21] LABS: ALKALINE PHOSPHATASE 80 u/l (38-126); ANION GAP 16 (6-22 (CALC)); BUN 14 mg/dL (7-17); BUN/CREATININE RATIO 18 (12-20 (CALC)); CARBON DIOXIDE 21 mmol/l (22-30); CHLORIDE 101 mmol/l (95-108); CREATININE 0.7 mg/dL (0.5-1.0); GFR FOR AFR.AMER. > 60 ML/MIN (>=60 (CALC)); GFR OTHER RACES > 60 ML/MIN (>=60 (CALC)); POTASSIUM 3.7 mmol/l (3.5-5.1); SODIUM 135 mmol/l (137-146)
[2023-04-23 19:22] LABS: ALBUMIN 4.6 g/dL (3.2-5.0); BILIRUBIN, TOTAL 0.6 mg/dL (0.02-1.3); SGOT/AST 185 u/l (14-36)
[2023-04-23 19:37] LABS: URINE BLOOD DIPSTICK Trace-intact (NEGATIVE); URINE GLUCOSE - DIPSTICK 100 mg/dL (NEGATIVE); URINE KETONE Trace mg/dL (NEGATIVE); URINE LEUK ESTERASE Trace (NEGATIVE); URINE NITRITE - DIPSTICK Negative (Negative); URINE PH 6.5 (4.5-8.0); URINE PROTEIN - DIPSTICK 30 mg/dL (NEG-TRACE); URINE SPECIFIC GRAVITY 1.025; URINE UROBILINOGEN - DIPSTICK >=8.0 E.U./dL (0.2)
[2023-04-23 19:38] LABS: URINE COLOR Yellow
[2023-04-23 19:39] LABS: URINE RBC 0-2 RBC/hpf (0-5); URINE SQUAMOUS EPITHELIAL CELL FEW EPI/hpf (0-FEW); URINE WBC 0-2 WBC/hpf (0-5)
[2023-04-23] MEDS ORDERED: ZITHROMAX250 MG PO (21:58)
[2023-04-23] MEDS ORDERED: BENZONATATE200 MG PO (21:58)
[2023-04-24 04:48] VITALS: BP 144/67
[2023-04-24 05:51] LABS: HEMATOCRIT 41.9 % (37.0-47.0); HEMOGLOBIN 14.1 g/dl (12.0-16.0); MEAN CELL VOLUME 94.2 fL CALC (80.0-100.0); MEAN CORPUSCULAR HGB 31.7 pG CALC (26.0-32.0); MEAN CORPUSCULAR HGB CONC 33.7 g/dL CAL (32.0-36.0); RED BLOOD COUNT 4.45 mill/uL (4.20-5.60)
[2023-04-24 06:16] LABS: ALBUMIN 4.1 g/dL (3.2-5.0); ALKALINE PHOSPHATASE 89 u/l (38-126); ANION GAP 17 (6-22 (CALC)); BILIRUBIN, TOTAL 0.8 mg/dL (0.02-1.3); BUN 13 mg/dL (7-17); BUN/CREATININE RATIO 20 (12-20 (CALC)); CARBON DIOXIDE 19 mmol/l (22-30); CHLORIDE 103 mmol/l (95-108); CREATININE 0.7 mg/dL (0.5-1.0); GFR FOR AFR.AMER. > 60 ML/MIN (>=60 (CALC)); GFR OTHER RACES > 60 ML/MIN (>=60 (CALC)); MAGNESIUM 1.9 mg/dL (1.6-2.3); POTASSIUM 3.7 mmol/l (3.5-5.1); SGOT/AST 216 u/l (14-36); SODIUM 135 mmol/l (137-146); TOTAL PROTEIN 7.1 g/dL (6.3-8.2)
[2023-04-24 07:00] VITALS: BP 122/66
[2023-04-24 12:00] VITALS: BP 128/62
[2023-04-24 12:01] VITALS: BP 101/62; BP 119/62; BP 119/63
[2023-04-24 15:52] VITALS: BP 135/73
[2023-04-24 19:43] VITALS: BP 116/60
[2023-04-25] VITALS (10 sets, daily range): BP systolic 100–144; BP diastolic 56–83
[2023-04-25 06:00] LABS: BASO% 0.4 % (0-3); EOS% 4.6 % (0-8); HEMATOCRIT 40.3 % (37.0-47.0); HEMOGLOBIN 13.4 g/dl (12.0-16.0); IMMATURE GRANULOCYTES 0.1 % (0.0-5.0); LYMPH% 41.8 % (15-41); MEAN CELL VOLUME 95.7 fL CALC (80.0-100.0); MEAN CORPUSCULAR HGB 31.8 pG CALC (26.0-32.0); MEAN CORPUSCULAR HGB CONC 33.3 g/dL CAL (32.0-36.0); MONO% 6.5 % (2-13); NEUT# 3.14 thou/uL (2.00-7.15); NEUT% 46.6 % (42-76); RED BLOOD COUNT 4.21 mill/uL (4.20-5.60); RED CELL DISTRI WIDTH 13.1 % (11.5-15.5)
[2023-04-25 06:12] LABS: ALBUMIN 3.6 g/dL (3.2-5.0); ALKALINE PHOSPHATASE 92 u/l (38-126); ANION GAP 13 (6-22 (CALC)); BUN 14 mg/dL (7-17); BUN/CREATININE RATIO 21 (12-20 (CALC)); CARBON DIOXIDE 20 mmol/l (22-30); CHLORIDE 107 mmol/l (95-108); CREATININE 0.7 mg/dL (0.5-1.0); GFR FOR AFR.AMER. > 60 ML/MIN (>=60 (CALC)); GFR OTHER RACES > 60 ML/MIN (>=60 (CALC)); MAGNESIUM 1.6 mg/dL (1.6-2.3); POTASSIUM 3.6 mmol/l (3.5-5.1); SGOT/AST 82 u/l (14-36); SODIUM 136 mmol/l (137-146); TOTAL PROTEIN 6.4 g/dL (6.3-8.2)
[2023-04-25 06:16] LABS: BILIRUBIN, TOTAL 0.4 mg/dL (0.02-1.3)
== END 2023-04-25 12:24 | disposition home or self-care (01) | DRG 178 ==
LOC: ED 18:21 → ED-I 20:02 → ED 20:12 → MS2 20:13
PROVIDERS: Nurse Practitioner; Nurse Practitioner Family; ADMIT Student in an Organized Health Care Education/Training Program; ATTEND Student in an Organized Health Care Education/Training Program
DX: U07.1 COVID-19 (principal); I42.9 Cardiomyopathy, unspecified; I95.1 Orthostatic hypotension; E86.0 Dehydration; R07.1 Chest pain on breathing; R51.9 Headache, unspecified; R50.9 Fever, unspecified; R52 Pain, unspecified; I11.0 Hypertensive heart disease with heart failure; I50.9 Heart failure, unspecified; E11.9 Type 2 diabetes mellitus without complications; I25.10 Atherosclerotic heart disease of native coronary artery without angina pectoris; J45.20 Mild intermittent asthma, uncomplicated; F17.210 Nicotine dependence, cigarettes, uncomplicated; Z95.5 Presence of coronary angioplasty implant and graft; Z86.73 Personal history of transient ischemic attack (TIA), and cerebral infarction without residual deficits; Z79.84 Long term (current) use of oral hypoglycemic drugs
CPT/HCPCS: G0378; J1650

== ENCOUNTER 2024-03-28 11:22 | Emergency (ER) | payer OTHER ==
[~2024-03-28] VITALS: Ht 167.6 cm; Wt 74.8 kg
[~2024-03-28 11:22] MED LIST changes: +BENZONATATE200 MG PO; +ZOFRAN4 MG/TAB PO
[2024-03-28 11:38] VITALS: BP 140/73
[2024-03-28] MEDS ORDERED: WALKER/ADULT/FOLDING EX (13:32)
[2024-03-28] MEDS ORDERED: TRAMADOL HYDROC50 M1 PO (13:32)
[2024-03-28] MEDS ORDERED: KETOROLAC TROMETHAMINE 30 MG/ML SDV IM ONE (13:35)
[2024-03-28 14:31] VITALS: BP 140/73
== END 2024-03-28 14:38 | disposition home or self-care (01) | DRG 605 ==
LOC: ED 11:22
DX: S80.02XA Contusion of left knee, initial encounter (principal); S80.212A Abrasion, left knee, initial encounter; I11.0 Hypertensive heart disease with heart failure; I50.9 Heart failure, unspecified; E11.9 Type 2 diabetes mellitus without complications; I25.10 Atherosclerotic heart disease of native coronary artery without angina pectoris; W01.0XXA Fall on same level from slipping, tripping and stumbling without subsequent striking against object, initial encounter; Y92.009 Unspecified place in unspecified non-institutional (private) residence as the place of occurrence of the external cause; Z79.84 Long term (current) use of oral hypoglycemic drugs; Z86.73 Personal history of transient ischemic attack (TIA), and cerebral infarction without residual deficits

== ENCOUNTER 2024-06-14 09:15 | Emergency (ER) | payer OTHER ==
[~2024-06-14] VITALS: Ht 167.6 cm; Wt 90.7 kg
[2024-06-14] VITALS (24 sets, daily range): BP systolic 102–144; BP diastolic 47–79
[~2024-06-14 09:15] MED LIST changes: +TRAMADOL HYDROC50 M1 PO; +WALKER/ADULT/FOLDING EX
[2024-06-14] MEDS ORDERED: ASPIRIN 81 MG/TAB PO ONE (09:40)
[2024-06-14 09:43] LABS: BASO% 0.3 % (0-3); EOS% 2.1 % (0-8); HEMATOCRIT 45.4 % (37.0-47.0); HEMOGLOBIN 15.3 g/dl (12.0-16.0); IMMATURE GRANULOCYTES 0.2 % (0.0-5.0); LYMPH% 39.7 % (15-41); MEAN CORPUSCULAR HGB 31.4 pG CALC (26.0-32.0); MEAN CORPUSCULAR HGB CONC 33.7 g/dL CAL (32.0-36.0); MONO% 5.8 % (2-13); NEUT# 6.12 thou/uL (2.00-7.15); NEUT% 51.9 % (42-76); RED BLOOD COUNT 4.88 mill/uL (4.20-5.60)
[2024-06-14] MEDS ORDERED: ONDANSETRON HCl 4 MG/2 ML SDV IV ONE (09:45)
[2024-06-14 09:53] LABS: ALBUMIN 4.5 g/dL (3.2-5.0); BILIRUBIN, TOTAL 0.5 mg/dL (0.02-1.3); CREATININE 0.7 mg/dL (0.5-1.0)
== END 2024-06-14 15:06 | disposition home or self-care (01) | DRG 153 ==
LOC: ED 09:15
PROVIDERS: Family Medicine
DX: J06.9 Acute upper respiratory infection, unspecified (principal); R07.9 Chest pain, unspecified; E11.9 Type 2 diabetes mellitus without complications; I11.0 Hypertensive heart disease with heart failure; I50.9 Heart failure, unspecified; I25.10 Atherosclerotic heart disease of native coronary artery without angina pectoris; J45.909 Unspecified asthma, uncomplicated; F41.9 Anxiety disorder, unspecified; F17.210 Nicotine dependence, cigarettes, uncomplicated; Z86.73 Personal history of transient ischemic attack (TIA), and cerebral infarction without residual deficits; Z79.84 Long term (current) use of oral hypoglycemic drugs; Z95.5 Presence of coronary angioplasty implant and graft; Z20.822 Contact with and (suspected) exposure to COVID-19
CPT/HCPCS: J2405